=== PATIENT | male | born 1975 | race Caucasian/White ===

== ENCOUNTER 2020-05-01 16:47 | Emergency (ER) | payer OTHER ==
[2020-05-01 17:42] LABS: BASOPHIL 0.8 % (0-2); EOSINOPHIL 4.4 % (0-5); HCT 48.2 % (42.0-52.0); HGB 16.8 g/dl (13.2-18.0); LYMPHOCYTE 25.3 % (15-48); MCH 31.2 pg (25.0-31.0); MCHC 34.9 g/dL (32.0-36.0); MCV 89.6 fL (78.0-100.0); MONOCYTE 9.6 % (0-12); MPV 11.6 fL (6.0-9.5); NEUTROPHIL 59.6 % (41-80); NRBC 0; PLT 280 K/uL (150-400); RBC 5.38 M/uL (4.70-6.00); RDW 12.1 % (11.5-14.0); WBC 10.5 K/uL (4.0-10.5)
[2020-05-01 17:55] LABS: ALBUMIN 3.7 g/dL (3.4-5.0); BILIRUBIN - TOTAL 0.6 mg/dL (0.2-1.0); BUN/CREAT RATIO (CALC) 17.8 RATIO; CREATININE 0.9 mg/dL (0.67-1.17); GLOBULIN (CALCULATION) 3.7 g/dL; POTASSIUM 4.1 mmol/L (3.5-5.1); TOTAL PROTEIN 7.4 g/dL (6.4-8.2)
[2020-05-01 17:58] LABS: INR 1.02 (0.9-1.2); PROTHROMBIN TIME 12.7 SECONDS (11.4-13.6)
[2020-05-01] MEDS ORDERED: HYDRALAZINE25 MG PO (20:22)
== END 2020-05-01 20:42 | disposition home or self-care (01) ==
LOC: FER 16:47
PROVIDERS: Emergency Medicine
DX: I10 Essential (primary) hypertension (principal); R94.31 Abnormal electrocardiogram [ECG] [EKG]; F17.290 Nicotine dependence, other tobacco product, uncomplicated; Z79.899 Other long term (current) drug therapy
CPT/HCPCS: 36415; 71045; 80053; 84484; 85025; 85610; 93005; J0360

== ENCOUNTER 2020-11-27 09:15 | Inpatient (IN) | payer OTHER ==
[~2020-11-27] VITALS: Ht 177.8 cm; Wt 118.1 kg
[~2020-11-27 09:15] MED LIST: HYDRALAZINE25 MG PO
[2020-11-27 11:31] LABS: BASOPHIL 0.5 % (0-2); EOSINOPHIL 0 % (0-5); HCT 41.4 % (42.0-52.0); HGB 15.2 g/dl (13.2-18.0); LYMPHOCYTE 4.1 % (15-48); MCH 31.3 pg (25.0-31.0); MCHC 36.7 g/dL (32.0-36.0); MCV 85.2 fL (78.0-100.0); MONOCYTE 3.5 % (0-12); NEUTROPHIL 89.7 % (41-80); NRBC 0; RBC 4.86 M/uL (4.70-6.00); WBC 17.4 K/uL (4.0-10.5)
[2020-11-27 12:06] LABS: LACTIC ACID 1.5 mmol/L (0.4-1.9)
[2020-11-27 12:24] LABS: PLT 237 K/uL (150-400)
[2020-11-27 14:07] LABS: ALKALINE PHOSHATASE 68 U/L (46-116); ALT 209 U/L (16-63); AST 589 U/L (15-37); BILIRUBIN - TOTAL 1.1 mg/dL (0.2-1.0); BUN 34 mg/dL (7-18); BUN/CREAT RATIO (CALC) 20.4 RATIO; C-REACTIVE PROTEIN > 18.00 mg/dL (<=0.90); CHLORIDE 84 mmol/L (98-107); CO2 (BICARBONATE) 25 mmol/L (21-32); CREATININE 1.67 mg/dL (0.67-1.17); GLOBULIN (CALCULATION) 4.9 g/dL; GLUCOSE 322 mg/dL (74-106); LDH 1000 U/L (85-227); LIPASE 194 U/L (73-393); MAGNESIUM 1.3 mg/dL (1.8-2.4); POTASSIUM 2.7 mmol/L (3.5-5.1); TOTAL PROTEIN 6.9 g/dL (6.4-8.2)
[2020-11-27 14:09] LABS: CPK >7000 U/L (39-308)
[2020-11-27 14:11] LABS: BILIRUBIN 2+ mg/dL (NEGATIVE); BLOOD 3+ Ery/uL (NEGATIVE); GLUCOSE (U) NORMAL (NORMAL); LEUKOCYTES NEGATIVE Leu/uL (NEGATIVE); NITRITE POSITIVE (NEGATIVE); PROTEIN 2+ mg/dL (NEGATIVE); SPECIFIC GRAVITY 1.025 (1.001-1.030); pH 5.5 (5.0-9.0)
[2020-11-27 14:13] LABS: CLARITY HAZY (CLEAR); COLOR AMBER (YELLOW)
[2020-11-27 14:15] LABS: GRANULAR CASTS LARGE
[2020-11-27 14:16] LABS: AMORPHOUS URATES CRYSTALS MODERATE
[2020-11-27 14:17] LABS: BACTERIA 1+
[2020-11-28 06:10] LABS: BASOPHIL 0.3 % (0-2); EOSINOPHIL 0 % (0-5); HCT 38.5 % (42.0-52.0); LYMPHOCYTE 4.7 % (15-48); MCH 31.2 pg (25.0-31.0); MCHC 36.4 g/dL (32.0-36.0); MCV 85.7 fL (78.0-100.0); MONOCYTE 3.4 % (0-12); MPV 11.7 fL (6.0-9.5); NRBC 0; PLT 236 K/uL (150-400); RBC 4.49 M/uL (4.70-6.00); RDW 12.5 % (11.5-14.0); WBC 18.2 K/uL (4.0-10.5)
[2020-11-28 07:21] LABS: ALBUMIN 1.8 g/dL (3.4-5.0); ALKALINE PHOSHATASE 63 U/L (46-116); ALT 228 U/L (16-63); AST 697 U/L (15-37); BILIRUBIN - TOTAL 0.9 mg/dL (0.2-1.0); BUN 26 mg/dL (7-18); CHLORIDE 93 mmol/L (98-107); CO2 (BICARBONATE) 28 mmol/L (21-32); CPK >7000 U/L (39-308); GLOBULIN (CALCULATION) 3.7 g/dL; GLUCOSE 192 mg/dL (74-106); POTASSIUM 2.9 mmol/L (3.5-5.1); TOTAL PROTEIN 5.5 g/dL (6.4-8.2)
[2020-11-28 07:24] LABS: MAGNESIUM 2.5 mg/dL (1.8-2.4)
[2020-11-28 11:48] LABS: BILIRUBIN 1+ mg/dL (NEGATIVE); BLOOD 3+ Ery/uL (NEGATIVE); COLOR YELLOW (YELLOW); GLUCOSE (U) NORMAL (NORMAL); LEUKOCYTES NEGATIVE Leu/uL (NEGATIVE); NITRITE NEGATIVE (NEGATIVE); PROTEIN 2+ mg/dL (NEGATIVE); SPECIFIC GRAVITY 1.025 (1.001-1.030)
[2020-11-28 11:51] LABS: AMPHETAMINES NEGATIVE (NEGATIVE); BARBITURATES NEGATIVE (NEGATIVE); ECSTASY (MDMA) NEGATIVE (NEGATIVE); MARIJUANA (THC) NEGATIVE (NEGATIVE); METHADONE NEGATIVE (NEGATIVE); OPIATES NEGATIVE (NEGATIVE); OXYCODONE NEGATIVE (NEGATIVE)
[2020-11-28 11:53] LABS: CLARITY HAZY (CLEAR)
[2020-11-28 11:55] LABS: URINARY WBC RARE
[2020-11-28 11:56] LABS: AMORPHOUS URATES CRYSTALS MODERATE; BACTERIA TRACE; GRANULAR CASTS TRACE
[2020-11-29 03:57] LABS: BASOPHIL 0.3 % (0-2); EOSINOPHIL 0.3 % (0-5); HCT 36.4 % (42.0-52.0); LYMPHOCYTE 6.7 % (15-48); MCHC 35.7 g/dL (32.0-36.0); MCV 86.7 fL (78.0-100.0); MPV 12.4 fL (6.0-9.5); NEUTROPHIL 86.7 % (41-80); NRBC 0.1; PLT 248 K/uL (150-400); RDW 12.9 % (11.5-14.0); WBC 15.9 K/uL (4.0-10.5)
[2020-11-29 04:29] LABS: ALBUMIN 1.6 g/dL (3.4-5.0); BILIRUBIN - TOTAL 0.9 mg/dL (0.2-1.0); BUN/CREAT RATIO (CALC) 18.2 RATIO; CREATININE 0.99 mg/dL (0.67-1.17); GLOBULIN (CALCULATION) 4.6 g/dL; TOTAL PROTEIN 6.2 g/dL (6.4-8.2)
[2020-11-30 05:55] LABS: BASOPHIL 0.3 % (0-2); EOSINOPHIL 2.6 % (0-5); HGB 11.9 g/dl (13.2-18.0); LYMPHOCYTE 9.2 % (15-48); MCH 31.4 pg (25.0-31.0); MCHC 36.1 g/dL (32.0-36.0); MCV 87.1 fL (78.0-100.0); MONOCYTE 5.1 % (0-12); MPV 11.4 fL (6.0-9.5); NEUTROPHIL 78.2 % (41-80); NRBC 0; PLT 276 K/uL (150-400); RBC 3.79 M/uL (4.70-6.00); WBC 12.1 K/uL (4.0-10.5)
[2020-11-30 06:25] LABS: ALBUMIN 1.5 g/dL (3.4-5.0); BUN/CREAT RATIO (CALC) 13.5 RATIO; CREATININE 0.89 mg/dL (0.67-1.17); GLOBULIN (CALCULATION) 3.6 g/dL; POTASSIUM 3.1 mmol/L (3.5-5.1); TOTAL PROTEIN 5.1 g/dL (6.4-8.2)
[2020-11-30] MEDS ORDERED: BACLOFEN 10MG T10 MG PO (15:25)
[2020-11-30] MEDS ORDERED: LEVAQUIN750 MG PO (15:25)
[2020-12-01 07:19] LABS: BASOPHIL 0.6 % (0-2); EOSINOPHIL 3.7 % (0-5); HCT 35.5 % (42.0-52.0); HGB 12.5 g/dl (13.2-18.0); LYMPHOCYTE 9.5 % (15-48); MCH 31.1 pg (25.0-31.0); MCHC 35.2 g/dL (32.0-36.0); MCV 88.3 fL (78.0-100.0); MONOCYTE 6.1 % (0-12); MPV 10.7 fL (6.0-9.5); NEUTROPHIL 74.8 % (41-80); NRBC 0; PLT 397 K/uL (150-400); RBC 4.02 M/uL (4.70-6.00); RDW 13.4 % (11.5-14.0); WBC 12.8 K/uL (4.0-10.5)
[2020-12-01 07:53] LABS: BUN/CREAT RATIO (CALC) 12.3 RATIO; CREATININE 0.81 mg/dL (0.67-1.17); POTASSIUM 3.4 mmol/L (3.5-5.1)
[2020-12-01] MEDS ORDERED: LEVAQUIN750 MG PO (08:52)
== END 2020-12-01 10:34 | disposition home or self-care (01) | DRG 871 ==
LOC: FER 09:15 → FMS 18:16
PROVIDERS: Emergency Medicine; Nurse Practitioner; ADMIT Allergy & Immunology Allergy
DX: A41.9 Sepsis, unspecified organism (principal); J18.9 Pneumonia, unspecified organism; I21.A1 Myocardial infarction type 2; N17.9 Acute kidney failure, unspecified; M62.82 Rhabdomyolysis; E87.1 Hypo-osmolality and hyponatremia; Z20.822 Contact with and (suspected) exposure to COVID-19; E87.6 Hypokalemia; I10 Essential (primary) hypertension; E83.42 Hypomagnesemia; R73.9 Hyperglycemia, unspecified; Z79.899 Other long term (current) drug therapy; Z98.890 Other specified postprocedural states
CPT/HCPCS: 36415; 36600; 71250; 80048; 80053; 80202; 80305; 81001; 82550; 82728; 82803; 83036; 83605; 83615; 83690; 83735; 83880; 84145; 84443; 84484; 85025; 86140; 87040; 87070; 87088; 87205; 87449; 93005; 94010; 94640; 94667; 94668; A4216; J1650; J1956; J2405; J2543; J3370; J3475; J3480; J7030; J7040; J7050; J7120; U0002